=== PATIENT | female | born 1990 | race Caucasian/White ===

== ENCOUNTER 2018-05-27 11:28 | Outpatient (CLI) | payer MEDICAID ==
[~2018-05-27] VITALS: Ht 160 cm; Wt 86.4 kg
[~2018-05-27 11:28] MED LIST: IBUP-1223 PO; PREN1TAB25 PO
[2018-05-27 11:41] VITALS: BP 98/59
== END 2018-05-27 12:40 | disposition home or self-care (01) ==
LOC: LDOP 11:28
PROVIDERS: ATTEND Obstetrics & Gynecology
DX: O46.93 Antepartum hemorrhage, unspecified, third trimester (principal); Z3A.37 37 weeks gestation of pregnancy
CPT/HCPCS: 59025; 99201; G0463